=== PATIENT | female | born 1955 | race Caucasian/White ===

== ENCOUNTER 2018-02-09 11:30 | Inpatient (IN) | payer OTHER ==
[~2018-02-09] VITALS: Ht 157.5 cm; Wt 68.0 kg
[2018-02-09] MEDS ORDERED: CLONAZEPAM0.5 MG PO (11:33)
[2018-02-09] MEDS ORDERED: SYNTHROID50 MCG PO (11:33)
[2018-02-09] MEDS ORDERED: CARDURA1 MG PO (11:34)
[2018-02-22] MEDS ORDERED: DOCUSATE SODIU100 MG PO (08:00)
[2018-02-22] MEDS ORDERED: PERCOCET 5-3251 EACH PO (08:01)
[2018-02-22] MEDS ORDERED: CLONAZEPAM1 MG PO (08:02)
== END 2018-02-22 13:29 | disposition home or self-care (01) | DRG 454 ==
LOC: SURG 11:30 → O/R 02-21 04:40 → SURG 02-21 07:00 → PED 02-21 13:44
PROVIDERS: Orthopaedic Surgery Orthopaedic Surgery of the Spine
PROC: 0RG2071 Fusion of 2 or more Cervical Vertebral Joints with Autologous Tissue Substitute, Posterior Approach, Posterior Column, Open Approach (ICD-10-PCS; 2018-02-21)
PROC: 0RT30ZZ Resection of Cervical Vertebral Disc, Open Approach (ICD-10-PCS; 2018-02-21)
PROC: 07DS3ZZ Extraction of Vertebral Bone Marrow, Percutaneous Approach (ICD-10-PCS; 2018-02-21)
PROC: 0RG20A0 Fusion of 2 or more Cervical Vertebral Joints with Interbody Fusion Device, Anterior Approach, Anterior Column, Open Approach (ICD-10-PCS; principal; 2018-02-21 07:00)
DX: M50.021 Cervical disc disorder at C4-C5 level with myelopathy (principal); M47.12 Other spondylosis with myelopathy, cervical region; I10 Essential (primary) hypertension; E03.8 Other specified hypothyroidism